=== PATIENT | male | born 1970 | race Caucasian/White ===

== ENCOUNTER → 2017-10-22 | Outpatient (REF) ==
--- NOTE | 2017-10-23 07:14 | REP ---
LEFT SHOULDER: CLINICAL HISTORY: Pain and disability. TECHNIQUE: Internal rotation, external rotation and Y view of the left shoulder. FINDINGS: Mild/early-moderate arthritic changes include cortical irregularity along the acromioclavicular with small inferior spurring and subtle blunting to the glenoid rim. No acute fracture or dislocation. Subacromial space appears to be within normal limits. No significant periarticular calcifications. IMPRESSION: Arthritic degenerative changes. Signed by Aniceto Lema MD 10/27/2017 11:58 P
--- NOTE | 2017-10-23 07:25 | REP ---
LEFT KNEE: CLINICAL HISTORY: Pain and disability. TECHNIQUE: AP lateral, bilateral oblique and sunrise views of the left knee. FINDINGS: Subchondral sclerosis and minimal disc space narrowing at the tibiofemoral joint is appreciated. [place] view best demonstrates increased sclerosis along the patellar margin with anterior and lateral small loose bodies/calcifications and associated patellofemoral joint space narrowing as well as lateral marginal osteophytes. Patellar soft tissue swelling is also suggested and should be correlated clinically. No effusion. No fracture. 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 Signed by Aniceto Lema MD 10/28/2017 12:03 A
== END ==
LOC: M SMT 11:05
PROVIDERS: ATTEND Internal Medicine
DX: Z02.71 Encounter for disability determination (principal)